=== PATIENT | female | born 2000 | race Caucasian/White ===

== ENCOUNTER 2022-07-30 16:03 | Emergency (ER) | payer MEDICAID, SELFPAY ==
[2022-07-30 16:06] VITALS: BP 139/99; PULSE 90; RESP 18; TEMP 37.2; O2SAT 100; BMI 35.7
[2022-07-30 16:28] LABS: MANUAL DIFF FLAG NO
[2022-07-30 16:29] LABS: Basophils Absolute Auto 0.1 X10*3/uL (0.0-0.2); Basophils Percent Auto 0.6 % (0-2); Eosinophils Absolute Auto 0.3 X10*3/uL (0.0-0.4); Hematocrit 41.3 % (37.0-47.0); Hemoglobin 14.1 g/dl (12.0-16.0); Imm Gran Abs Auto 0.03 X10*3/uL (0.00-0.03); Imm Gran Pct Auto 0.3 % (0.0-0.4); Lymphocytes Absolute Auto 2.6 X10*3/uL (1.2-4.9); Lymphocytes Percent Auto 29.5 % (20-40); Mean Corpuscular HGB Conc 34.1 g/dl (31.0-35.0); Mean Corpuscular Hemoglobin 27.4 pg (27.0-33.0); Mean Corpuscular Volume 80.4 fL (80.0-98.0); Mean Platelet Volume 9.1 fL (9.4-12.3); Monocytes Absolute Auto 0.5 X10*3/uL (0.1-1.2); Monocytes Percent Auto 6.1 % (2-11); Neutrophils Absolute Auto 5.3 x10*3/uL (2.0-8.3); Neutrophils Percent Auto 60.5 % (45-73); Platelet Count 411 X10*3/uL (160-400); Red Blood Count 5.14 X10*6/uL (4.20-5.50); Red Cell Distribution Width 11.9 % (11.0-16.0); White Blood Count 8.8 X10*3/uL (4.8-10.8)
[2022-07-30 16:59] LABS: Alanine Aminotransferase 14 U/L (0-31); Albumin Level 4.5 g/dL (3.5-5.0); Alkaline Phosphatase 57 U/L (39-117); Anion Gap 16 (12-20); Aspartate Amino Transferase 17 U/L (5-31); Bilirubin Total 0.2 mg/dL (0.0-1.0); Blood Urea Nitrogen 10 mg/dL (9-16); Calcium 9.6 mg/dL (8.4-10.2); Carbon Dioxide 24 mmol/L (22-29); Chloride 103 mmol/L (96-108); Creatinine Clr Calc Pharmacy 99.1; Estimated Glomerular Filt Rate > 60; Glucose Random 105 mg/dL (60-115); Potassium 4.4 mmol/L (3.3-5.1); Sodium 139 mmol/L (135-145); Total Protein 7.8 g/dL (6.5-8.0)
--- NOTE | 2022-07-30 17:55 | ED.GENADULT ---
HPI - General Adult General Chief complaint: General Medical Stated complaint: swollen neck R side Time Seen by Provider: 07/30/22 17:25 Source: patient Mode of arrival: ambulatory Limitations: no limitations History of Present Illness HPI narrative: 21-year-old female presents to the ER for evaluation of a right-sided swollen lymph node on the side of her neck for the last 4 months. She reports she has 1 area on the back of her neck, near her hairline that there is a enlarged, tender lymph node. She reports she also has had a swollen tonsil on the right side and pain with swallowing for the last few months on and off. Patient reports she was seen by her PCP about this, she had an ultrasound performed in May, told was a normal lymph node and to present for re-evaluation in 4-8 weeks if symptoms persisted. Patient reports she has generalized pain in her neck and right side of her body. She does not have any other swollen lymph nodes and has been monitoring for this. She has not had any fevers, night sweats or weight loss. MD complaint: Swollen lymph node Onset (ago): month(s) (4) Location: neck Radiation: extremity Severity: moderate Severity scale (1-10): 5 Quality: aching Pain Consistency: constant Relieving factors: none Exacerbating factors: none Associated symptoms: denies other symptoms Treatments prior to arrival: none Related Data Previous Rx's Medication Instructions Recorded amoxicillin 875 mg-potassium 1 tab PO BID #14 tabs 07/30/22 clavulanate 125 mg tablet Allergies Allergy/AdvReac Type Severity Reaction Status Date / Time No Known Allergies Allergy Verified 07/30/22 16:06 Review of Systems Review of Systems: Constitutional: No Fever, No Chills, No weight loss ENT/Mouth: + sore throat, No Rhinorrhea, No Swallowing Difficulty Cardiovascular: No Chest Pain, No SOB, No Orthopnea, No Edema Respiratory: No Cough, No Sputum, No Wheezing, No dyspnea Gastrointestinal: No Nausea, No Vomiting, No Diarrhea, No abdominal Pain, No Hematochezia, No Melena, +Constipation Musculoskeletal: No joint pain, No Myalgias Skin: No Skin Lesions, No rash Neuro: No Weakness, No Numbness, No Dizziness, + Headache Heme/Lymph: No Bruising, +Lymphadenopathy PMFSH Social History Social History Advance Directives: No Advance Directives Information Provided: No Physical Exam ED Vital Signs: Vital Signs - 24 hr 07/30/22 16:06 Temperature 98.9 F Pulse Rate 90 Respiratory Rate 18 Blood Pressure 139/99 H Pulse Oximetry 100 Oxygen Delivery Method Room Air BMI result Body Mass Index 35.7 Appearance: Alert. Oriented X3. No acute distress. Eyes: Pupils equal, round and reactive to light. ENT: Pharynx normal. Normal tympanic membranes bilaterally. Normal inspection of the tonsils. Uvula midline. Normal voice. Neck: Normal inspection. Neck supple. Poserior occipital area on the right side with a single approximately 1cm enlarged and tender lesion, mobile, consistent with lymph node. No other palpable lymphadenopathy throughout the cervical chains. No supraclavicular lymphadenopathy. CVS: Normal heart rate and rhythm. Pulses normal. Respiratory: No respiratory distress. Breath sounds normal. Abdomen: Soft and nontender. +BS x4 Skin: Skin warm and dry. Normal skin color. Normal skin turgor. No rashes. Extremities: No lower extremity edema. No inguinal lymphadenopathy. Neuro: Oriented X 3. No motor deficit. No sensory deficit. Course Course Course Narrative: 21-year-old female presents to the ER for evaluation of an isolated inflamed, tender lymph node in her posterior occipital chain. She reports pain in the right tonsil in pain with swallowing as well. She has no other URI symptoms. No fevers. No history of lymph home a in the family. She has an outpatient ultrasound who recommended a repeat 1 be done if she had ongoing swelling in 4-8 weeks. She states her primary care doctor left the practice and is in the process of getting a new primary care doctor. On exam today she only has 1 palpable lymph node in the posterior chain. It is mobile and tender, no overlying erythema. No other lymphadenopathy on examination. Otherwise her physical exam is benign. Her lab work is unremarkable. Patient has not been treated with a course of antibiotics for possible bacterial etiology. Will give her a course of Augmentin and have her follow-up with a new PCP or General surgery for evaluation of possible biopsy. No urgent need to arrange this today. She will make phone calls to arrange this as an outpatient. She is stable for discharge home. Patient agrees with plan. Medical Decision Making Lab Data Result diagrams: 07/30/22 16:19 07/30/22 16:19 Labs: Lab Results 07/30/22 07/30/22 Range/Units 16:19 16:19 WBC 8.8 (4.8-10.8) X10*3/uL RBC 5.14 (4.20-5.50) X10*6/uL Hgb 14.1 (12.0-16.0) g/dl Hct 41.3 (37.0-47.0) % MCV 80.4 (80.0-98.0) fL MCH 27.4 (27.0-33.0) pg MCHC 34.1 (31.0-35.0) g/dl RDW 11.9 (11.0-16.0) % Plt Count 411 H (160-400) X10*3/uL MPV 9.1 L (9.4-12.3) fL Immature Gran % (Auto) 0.3 (0.0-0.4) % Neut % (Auto) 60.5 (45-73) % Lymph % (Auto) 29.5 (20-40) % [place] % (Auto) 6.1 (2-11) % Eos % (Auto) 3.0 (0-4) % Baso % (Auto) 0.6 (0-2) % Lymph # (Auto) 2.6 (1.2-4.9) X10*3/uL [place] # (Auto) 0.5 (0.1-1.2) X10*3/uL Eos # (Auto) 0.3 (0.0-0.4) X10*3/uL Baso # (Auto) 0.1 (0.0-0.2) X10*3/uL Abs Immat Gran (auto) 0.03 (0.00-0.03) X10*3/uL Absolute Neuts (auto) 5.3 (2.0-8.3) x10*3/uL Absolute Nucleated RBC 0.000 (0.0-0.012) X10*3/uL Nucleated RBC % (auto) 0.0 (0.0-0.2) /100WBC Sodium 139 (135-145) mmol/L Potassium 4.4 (3.3-5.1) mmol/L Chloride 103 (96-108) mmol/L Carbon Dioxide 24 (22-29) mmol/L Anion Gap 16 (12-20) BUN 10 (9-16) mg/dL Creatinine 0.85 (0.5-1.4) mg/dL Estim Creat Clear Calc 99.1 Estimated GFR > 60 Random Glucose 105 (60-115) mg/dL Calcium 9.6 (8.4-10.2) mg/dL Total Bilirubin 0.2 (0.0-1.0) mg/dL AST 17 (5-31) U/L ALT 14 (0-31) U/L Alkaline Phosphatase 57 (39-117) U/L Total Protein 7.8 (6.5-8.0) g/dL Albumin 4.5 (3.5-5.0) g/dL Discharge Plan Discharge Clinical Impression: Lymphadenopathy of head and neck Patient Disposition: Home, Self-Care Instructions: Lymphadenopathy (ED) Additional Instructions: Take the prescribed antibiotic as directed. Complete the entire course. Use warm compresses to the area several times per day. Take anti-inflammatory medications as Motrin, Aleve, Advil for pain. Recommend following up with the primary care doctor to arrange for a repeat ultrasound and potential biopsy of the inflamed lymph node. If he cannot get a hold of your primary care doctor, recommend trying to a follow up with General surgery for evaluation of the same. If you develop new or worsening symptoms call 911 or come back to the ER for further evaluation. Prescriptions: New amoxicillin-pot clavulanate 875-125 mg tablet 1 tab PO BID Qty: 14 0RF [place]: [facility] [place] [facility] [place]] [facility] [Provider Group]
== END 2022-07-30 19:05 | disposition home or self-care (01) ==
PROVIDERS: Emergency Provider Emergency Medicine
DX: R59.1 Generalized enlarged lymph nodes (principal)
CPT/HCPCS: 36415; 80053; 85025; 99281; 99283

== ENCOUNTER 2022-08-04 12:11 | Emergency (ER) | payer MEDICAID, SELFPAY ==
--- NOTE | ~2022-08-04 | CT_ITS ---
EXAMINATION: CT HEAD WITHOUT CONTRAST CLINICAL INFORMATION: Headache COMPARISON: None TECHNIQUE: Imaging was performed from the skull base to vertex without intravenous administration of contrast. This CT examination was performed using dose optimization techniques as appropriate, variously including the following: *Automated exposure control *Adjustment of mA and/or kV according to patient size (this includes techniques or standardized protocols for targeted exams where dose is matched to indication/reason for exam; i.e. extremities or head) *Use of iterative reconstruction technique Total exam dose length product: 818 mGy-cm FINDINGS: No intra or extra-axial fluid collection, hemorrhage, or mass. No ventriculomegaly. No midline shift or herniation. Basal cisterns are patent. Burns-white matter differentiation is maintained. No territorial encephalomalacia. No significant volume loss. There is no abnormal attenuation within the brain parenchyma. No calvarial fracture or soft tissue abnormality. Small amount of mucus or small mucous retention cyst in the posterior right maxillary antrum. Mastoid air cells are normally aerated. CT/CT head/brain wo IV con IMPRESSION: No acute intracranial pathology.
--- NOTE | ~2022-08-04 | CT_ITS ---
EXAMINATION: CT ABDOMEN AND PELVIS WITH CONTRAST CLINICAL INFORMATION: Abdominal pain on palpation COMPARISON: None TECHNIQUE: Multidetector volumetric images were obtained from the superior aspect of the liver through the pubic symphysis following administration 85 mL of Omnipaque 350 intravenous contrast. Sagittal and coronal reformatted images were obtained on the technologist's workstation. Oral contrast: No This CT examination was performed using dose optimization techniques as appropriate, variously including the following: *Automated exposure control *Adjustment of mA and/or kV according to patient size (this includes techniques or standardized protocols for targeted exams where dose is matched to indication/reason for exam; i.e. extremities or head) *Use of iterative reconstruction technique DLP: 1039 mGy-cm FINDINGS: LUNG BASES: The visualized lung bases are unremarkable. LIVER, GALLBLADDER, AND BILIARY TREE: The liver is normal in size, shape, and attenuation. No focal hepatic lesion or biliary ductal dilatation is present. The gallbladder is unremarkable with no evidence of radiopaque gallstones, gallbladder wall thickening, or obvious pericholecystic inflammatory changes. PANCREAS: Unremarkable. SPLEEN: Unremarkable. ADRENAL GLANDS: Unremarkable. KIDNEYS AND URETERS: The kidneys are normal in size, shape, and attenuation. No hydronephrosis, hydroureter, or calculi seen. No perinephric stranding. BLADDER: Unremarkable. GASTROINTESTINAL TRACT: The small and large bowel are unremarkable. The appendix is unremarkable. ABDOMINAL WALL: No significant hernia is appreciated. LYMPH NODES: Normal. VASCULAR: Unremarkable. PELVIC VISCERA: A normal anteverted uterus is present. Bilateral ovarian cysts are seen, with on the left with a slightly thickened wall, perhaps associated with rupture. Small amount of free fluid is present in the cul-de-sac. OSSEOUS STRUCTURES: Unremarkable. CT/CT abdomen pelvis w IV con IMPRESSION: Bilateral ovarian cysts, with on the left, one of which has a slightly thickened wall, perhaps associated with rupture and the small amount of free fluid which is present in the cul-de-sac. Fleischner guidelines were followed.
--- NOTE | ~2022-08-04 | CT_ITS ---
EXAMINATION: CT SOFT TISSUE NECK WITH CONTRAST CLINICAL INFORMATION: Small lymph nodes and positive constitutional symptoms COMPARISON: None TECHNIQUE: Following the intravenous administration of 85 mL of Omnipaque 350 intravenous contrast, helical imaging was performed in the axial plane with generation of coronal and sagittal reformatted images. This CT examination was performed using dose optimization techniques as appropriate, variously including the following: *Automated exposure control *Adjustment of mA and/or kV according to patient size (this includes techniques or standardized protocols for targeted exams where dose is matched to indication/reason for exam; i.e. extremities or head) *Use of iterative reconstruction technique DLP: 673 mGy-cm FINDINGS: There are scattered small subcentimeter short axis dimension cervical lymph nodes bilaterally, morphologically normal in appearance. The largest lymph nodes are noted jugulodigastric chains measuring up to 0.7 cm in short axis. No mucosal space mass. No retropharyngeal edema/fluid collection. Normal appearance of the laryngeal structures. Thyroid gland and major salivary glands are unremarkable. No carotid space mass. Common and internal carotid arteries are patent as are the internal jugular veins. Unremarkable appearance of the court recording monitor space and symmetric normal appearance of the parapharyngeal fat. Globes and retro-orbital structures are intact. Visualized intracranial contents are unremarkable. Visualized portions of the upper lungs are clear. Triangular shaped soft tissue density in the anterior mediastinum consistent with thymic tissue noted. No fracture or suspicious osseous lesion. Visualized paranasal sinuses and mastoid air cells are normally aerated. CT/CT soft tissue neck w IV con IMPRESSION: 1. No pathologically enlarged cervical lymph nodes identified. 2. No mass or fluid collection identified.
[2022-08-04 12:38] VITALS: BP 143/80; PULSE 88; RESP 19; TEMP 36.6; O2SAT 100; BMI 35.2
[2022-08-04 12:57] LABS: MANUAL DIFF FLAG NO
[2022-08-04 12:58] LABS: Basophils Percent Auto 0.6 % (0-2); Eosinophils Absolute Auto 0.3 X10*3/uL (0.0-0.4); Eosinophils Percent Auto 3.6 % (0-4); Hematocrit 40.3 % (37.0-47.0); Hemoglobin 13.5 g/dl (12.0-16.0); Imm Gran Abs Auto 0.02 X10*3/uL (0.00-0.03); Imm Gran Pct Auto 0.3 % (0.0-0.4); Lymphocytes Absolute Auto 2.3 X10*3/uL (1.2-4.9); Lymphocytes Percent Auto 31.7 % (20-40); Mean Corpuscular HGB Conc 33.5 g/dl (31.0-35.0); Mean Corpuscular Hemoglobin 27.1 pg (27.0-33.0); Mean Corpuscular Volume 80.8 fL (80.0-98.0); Monocytes Absolute Auto 0.5 X10*3/uL (0.1-1.2); Monocytes Percent Auto 6.6 % (2-11); Neutrophils Absolute Auto 4.1 x10*3/uL (2.0-8.3); Neutrophils Percent Auto 57.2 % (45-73); Platelet Count 377 X10*3/uL (160-400); Red Blood Count 4.99 X10*6/uL (4.20-5.50); Red Cell Distribution Width 12.1 % (11.0-16.0); White Blood Count 7.2 X10*3/uL (4.8-10.8)
[2022-08-04 12:59] LABS: Appearance Urine Clear; Color Urine Yellow; Glucose Urine UA Negative (Negative); Leukocyte Esterase Urine Negative (Negative); Nitrite Urine Negative (Negative); PH 5.5 (5.0-9.0); Specific Gravity - Urine 1.015 (1.005-1.025); Urine Blood Negative (Negative); Urine Ketones Negative (Negative); Urine Protein Negative (Neg-Trace)
[2022-08-04 13:02] LABS: UPreg QC Valid YES; Urine Pregnancy NEGATIVE (NEGATIVE)
[2022-08-04 13:18] LABS: Anion Gap 15 (12-20); Blood Urea Nitrogen 9 mg/dL (9-16); Calcium 9.4 mg/dL (8.4-10.2); Carbon Dioxide 22 mmol/L (22-29); Chloride 106 mmol/L (96-108); Creatinine Clr Calc Pharmacy 101.8; Estimated Glomerular Filt Rate > 60; Glucose Random 95 mg/dL (60-115); Potassium 4.3 mmol/L (3.3-5.1); Sodium 139 mmol/L (135-145)
--- NOTE | 2022-08-04 17:46 | ED.GENADULT ---
HPI - General Adult General Chief complaint: General Medical Stated complaint: Swollen lymph node/Thyroid issues? Time Seen by Provider: 08/04/22 17:40 Source: patient Mode of arrival: ambulatory Limitations: no limitations History of Present Illness HPI narrative: 21-year-old female presents to the ER for evaluation of a right-sided swollen painful lymph node on the side of her neck for the last 3 months.? Patient reports she was seen by her PCP about this, she had an ultrasound performed in May, told was a normal lymph node and to present for re-evaluation if symptoms persisted.? Patient reports she has generalized pain in her neck.? She does not have any other swollen lymph nodes and has been monitoring for this.? Endorses 12 lb weight loss in two months, diaphoresis, fevers/chills, night sweats. Also reporting headache, tinitus, right sided ear pain and nausea. No history of Hodgkin's or non-Hodgkin's lymphoma the family. Related Data Previous Rx's Medication Instructions Recorded amoxicillin 875 mg-potassium 1 tab PO BID #14 tabs 07/30/22 clavulanate 125 mg tablet prednisone 20 mg tablet 40 mg PO DAILY 5 days #10 tabs 08/04/22 Allergies Allergy/AdvReac Type Severity Reaction Status Date / Time No Known Allergies Allergy Verified 07/30/22 16:06 Review of Systems Review of Systems: Constitutional : + Weight loss, + Fever, + Chills, + Fatigue, + Malaise ENT/Mouth : No sore throat, No Rhinorrhea, + ear pain Eyes: No Eye Pain, No Swelling, No Redness Cardiovascular : No Chest Pain, No SOB, No Dyspnea on Exertion, No Orthopnea, No Edema, No Palpitations Respiratory : No Cough, No Sputum, No Wheezing Gastrointestinal : + Nausea, No Vomiting, No Diarrhea, No Constipation, No abdominal Pain, No Hematochezia, No Melena Genitourinary : No Dysuria, No Urinary Frequency, No Hematuria, Musculoskeletal : + joint pain, No Myalgias, No Joint Swelling Skin : No Skin Lesions, No rash Neuro : No Weakness, No Numbness, No Dizziness, + Headache Psych : No Anxiety/Panic, No Depression All other systems reviewed and are negative Yes all other systems are reviewed and are negative [facility] Past Medical History Attestation statement: The following information was validated with the patient. Source: old records reviewed and nursing notes reviewed Social History Social History Advance Directives: No Advance Directives Information Provided: No Physical Exam ED Vital Signs: Vital Signs - 24 hr 08/04/22 12:38 08/04/22 17:54 Temperature 98 F 98.0 F Pulse Rate 88 80 Respiratory Rate 19 16 Blood Pressure 143/80 H 135/79 Pulse Oximetry 100 99 Oxygen Delivery Method Room Air Room Air BMI result Body Mass Index 35.2 vss Appearance: Alert.? Oriented X3.? No acute distress.? Head: Normocephalic, atraumatic, no step-offs or deformities Eyes: Pupils equal, round and reactive to light.? ENT: Pharynx normal.? Neck: Normal inspection.? Neck supple.? Cervical lymphadenopathy to right side of neck CVS: Normal heart rate and rhythm.? Pulses normal.? Respiratory: No respiratory distress.? Breath sounds normal.? Abdomen: Soft and nontender.? Skin: Skin warm and dry.? Normal skin color.? Normal skin turgor.? Extremities: No lower extremity edema.? No calf ttp. 5/5 strength to bilateral upper and lower extremities Back: No midline tenderness, no C-spine tenderness, full range of motion, no CVA tenderness bilaterally Neuro: Oriented X 3.? No motor deficit.? No sensory deficit. CN 2-12 intact Course Reevaluation(s) Reevaluation #1: Sign out to [facility]. Pending scans and reeval Time: 18:40 Medical Decision Making [facility] Narrative Medical decision making narrative: 1800 21-year-old female presents with complaints of a painful swollen lymph node in her neck times a few months worsening no reporting constitutional symptoms. Review of systems overwhelmingly positive. No significant family or personal history of cancer or Hodgkin's or non-Hodgkin's lymphoma. To note to note, patient was seen here on 07/30/2022 with similar complaints was placed on Augmentin with little to no relief. Physical examination with left upper quadrant pain and right lower quadrant pain to palpation however patient did not express concerns about abdominal pain upon history taking. Also right-sided cervical adenopathy noted Plan at this time is to obtain a CT with contrast of soft tissues neck, head, abdomen and pelvis. Because of constitutional symptoms there is concern for malignancy, suspicion for electrolyte, infection abscesses to be this discomfort Plan at this time is to obtain labs, imaging, Monospot. Medical Records Medical records reviewed: Yes I reviewed the patient's medical records. Lab Data Lab results reviewed: Yes I reviewed the patient's lab results. Result diagrams: 08/04/22 12:51 08/04/22 12:51 Labs: Lab Results 08/04/22 08/04/22 08/04/22 Range/Units 12:51 12:51 12:51 WBC 7.2 (4.8-10.8) X10*3/uL RBC 4.99 (4.20-5.50) X10*6/uL Hgb 13.5 (12.0-16.0) g/dl Hct 40.3 (37.0-47.0) % MCV 80.8 (80.0-98.0) fL MCH 27.1 (27.0-33.0) pg MCHC 33.5 (31.0-35.0) g/dl RDW 12.1 (11.0-16.0) % Plt Count 377 (160-400) X10*3/uL MPV 9.0 L (9.4-12.3) fL Immature Gran % (Auto) 0.3 (0.0-0.4) % Neut % (Auto) 57.2 (45-73) % Lymph % (Auto) 31.7 (20-40) % [place] % (Auto) 6.6 (2-11) % Eos % (Auto) 3.6 (0-4) % Baso % (Auto) 0.6 (0-2) % Lymph # (Auto) 2.3 (1.2-4.9) X10*3/uL [place] # (Auto) 0.5 (0.1-1.2) X10*3/uL Eos # (Auto) 0.3 (0.0-0.4) X10*3/uL Baso # (Auto) 0.0 (0.0-0.2) X10*3/uL Abs Immat Gran (auto) 0.02 (0.00-0.03) X10*3/uL Absolute Neuts (auto) 4.1 (2.0-8.3) x10*3/uL Absolute Nucleated RBC 0.000 (0.0-0.012) X10*3/uL Nucleated RBC % (auto) 0.0 (0.0-0.2) /100WBC Sodium 139 (135-145) mmol/L Potassium 4.3 (3.3-5.1) mmol/L Chloride 106 (96-108) mmol/L Carbon Dioxide 22 (22-29) mmol/L Anion Gap 15 (12-20) BUN 9 (9-16) mg/dL Creatinine 0.82 (0.5-1.4) mg/dL Estim Creat Clear Calc 101.8 Estimated GFR > 60 Random Glucose 95 (60-115) mg/dL Calcium 9.4 (8.4-10.2) mg/dL Urine Color Yellow Urine Appearance Clear Urine pH 5.5 (5.0-9.0) Ur Specific [place] 1.015 (1.005-1.025) Urine Protein Negative (Neg-Trace) mg/dL Urine Glucose (UA) Negative (Negative) mg/dL Urine Ketones Negative (Negative) mg/dL Urine Blood Negative (Negative) Urine Nitrite Negative (Negative) Ur Leukocyte Esterase Negative (Negative) Urine Test (NEGATIVE) Monoscreen (Negative) 08/04/22 08/04/22 Range/Units 12:51 18:08 WBC (4.8-10.8) X10*3/uL RBC (4.20-5.50) X10*6/uL Hgb (12.0-16.0) g/dl Hct (37.0-47.0) % MCV (80.0-98.0) fL MCH (27.0-33.0) pg MCHC (31.0-35.0) g/dl RDW (11.0-16.0) % Plt Count (160-400) X10*3/uL MPV (9.4-12.3) fL Immature Gran % (Auto) (0.0-0.4) % Neut % (Auto) (45-73) % Lymph % (Auto) (20-40) % [place] % (Auto) (2-11) % Eos % (Auto) (0-4) % Baso % (Auto) (0-2) % Lymph # (Auto) (1.2-4.9) X10*3/uL [place] # (Auto) (0.1-1.2) X10*3/uL Eos # (Auto) (0.0-0.4) X10*3/uL Baso # (Auto) (0.0-0.2) X10*3/uL Abs Immat Gran (auto) (0.00-0.03) X10*3/uL Absolute Neuts (auto) (2.0-8.3) x10*3/uL Absolute Nucleated RBC (0.0-0.012) X10*3/uL Nucleated RBC % (auto) (0.0-0.2) /100WBC Sodium (135-145) mmol/L Potassium (3.3-5.1) mmol/L Chloride (96-108) mmol/L Carbon Dioxide (22-29) mmol/L Anion Gap (12-20) BUN (9-16) mg/dL Creatinine (0.5-1.4) mg/dL Estim Creat Clear Calc Estimated GFR Random Glucose (60-115) mg/dL Calcium (8.4-10.2) mg/dL Urine Color Urine Appearance Urine pH (5.0-9.0) Ur Specific [place] (1.005-1.025) Urine Protein (Neg-Trace) mg/dL Urine Glucose (UA) (Negative) mg/dL Urine Ketones (Negative) mg/dL Urine Blood (Negative) Urine Nitrite (Negative) Ur Leukocyte Esterase (Negative) Urine Test NEGATIVE (NEGATIVE) Monoscreen Negative (Negative) Critical Care Time Critical Care Time Critical Care Time: No Discharge Plan Discharge Clinical Impression: Neck pain, Lymphadenopathy Patient Disposition: Still a Patient Additional Instructions: Take your medications as prescribed. If you were prescribed antibiotics today, it is important that you take your medication to their entirety, do not skip any doses, do not finish them early. Follow-up with your primary care provider this week. Return to the emergency department with new or worsening symptoms. Such as fevers, chills, chest pain, shortness of breath, nausea, vomiting, dizziness, headache, vision changes, lethargy In case of emergency call 911 Prescriptions: New prednisone 20 mg tablet 40 mg PO DAILY 5 Days Qty: 10 0RF No Action amoxicillin-pot clavulanate 875-125 mg tablet 1 tab PO BID Qty: 14 0RF Referrals: [facility] [place] On[facility]/Hematology [Provider Group] - 1 week
[2022-08-04 17:54] VITALS: BP 135/79; PULSE 80; RESP 16; TEMP 36.7; O2SAT 99
[2022-08-04 18:28] LABS: Monotest Negative (Negative)
[2022-08-04 19:12] LABS: TSH reflex Free T4 2.05 uIU/mL (0.32-4.0)
[2022-08-04] MEDS: iohexoL 350 MG/ML 100 ML INFUS..BTL IV (22:10)
[2022-08-04] MEDS: Acetaminophen 325 MG TABLET 650 MG PO (22:22)
== END 2022-08-04 23:32 | disposition home or self-care (01) ==
PROVIDERS: Physician Assistant; Emergency Provider Emergency Medicine
DX: M54.2 Cervicalgia (principal); R51.9 Headache, unspecified; R10.9 Unspecified abdominal pain; Z79.899 Other long term (current) drug therapy
CPT/HCPCS: 36415; 70450; 70491; 74177; 80048; 81003; 81025; 84443; 85025; 86308; 99284; Q9967

== ENCOUNTER 2025-08-22 18:38 | Emergency (ER) | payer OTHER, SELFPAY ==
--- OUTSIDE RECORDS SUMMARY | 2025-08-16 22:59 | XMS_ITS | Continuity of Care Document ---
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 Role Phone Arina SHABAZZ, Kristy Walker Primary Care Physician Encounter [facility] Date(s): 07/17/25 - 08/16/25 [facility] [address] [place] [address]- Encounter Type: Triage Allergies, Adverse Reactions, Alerts No Known Allergies Immunizations Given and Recorded Vaccine Date Status Refusal Reason Human Papillomavirus Vaccine 12/24/16 Recorded Human Papillomavirus Vaccine 05/26/16 Recorded Human Papillomavirus Vaccine 12/24/15 Recorded Human Papillomavirus Vaccine 09/07/14 Recorded Measles/Mumps/Rubella Virus Vaccine 05/26/16 Recor ded Measles/Mumps/Rubella Virus Vaccine 04/18/04 Recor ded Measles/Mumps/Rubella Virus Vaccine 12/28/00 Recor ded Measles/Mumps/Rubella Virus Vaccine 99 Recor ded Meningococcal Conjugate Vaccine 12/24/15 Recorded Meningococcal Conjugate Vaccine 09/07/14 Recorded tetanus/diphtheria/pertussis, acel(Tdap) 10/14/11 Recorded Varicella Virus Vaccine 12/12/09 Recorded Varicella Virus Vaccine 12/28/00 Recorded Poliovirus Vaccine, Inactivated 04/18/04 Recorded Poliovirus Vaccine, Inactivated 03/05/00 Recorded Poliovirus Vaccine, Inactivated 99 Recorded Poliovirus Vaccine, Inactivated 99 Recorded diphtheria/tetanus/pertussis, acel(DTaP) 04/18/04 Recorded diphtheria/tetanus/pertussis, acel(DTaP) 12/28/00 Recorded diphtheria/tetanus/pertussis, acel(DTaP) 03/05/00 Recorded diphtheria/tetanus/pertussis, acel(DTaP) 99 Recorded diphtheria/tetanus/pertussis, acel(DTaP) 99 Recorded hepatitis B pediatric vaccine 12/28/00 Recorded hepatitis B pediatric vaccine 99 Recorded hepatitis B pediatric vaccine 99 Recorded Medications escitalopram 10 mg oral tablet 1.5 tablet = 15 mg, By Mouth, Daily, # 45 tablet, 5 Refills, Maintenance, 07/02/25 2:20:00 PM EDT, [facility]/pharmacy #[id number], 153, cm, 07/02/25 14:10:00 EDT, Height Start Date: 07/02/25 Status: Ordered Medication Dispense Status: Completed Quantity: 45.0 Unit: tablet Total Allowed Fills: 6 Fills Dispensed: 0 gabapentin 300 mg oral capsule 1, capsule, By Mouth, 2 times a day, # 60 capsule, Refills 1, Maintenance, 08/06/25 4:17:00 PM EDT,Route to Pharmacy Electronically, [id number], 153, cm, 07/02/25 14:10:00 EDT, Height Start Date: 08/06/25 Status: Ordered Medication Dispense Status: Completed Quantity: 60.0 Unit: capsule Total Allowed Fills: 1 Fills Dispensed: 0 ibuprofen 600 mg oral tablet 600 mg, 1, tablet, By Mouth, 4 times a day, PRN, # 12 tablet, Refills 0, Tot. Refills 0, Maintenance, as needed for pain, 11/13/18 1:47:06 AM EST, Print Requisition Start Date: 11/13/18 Status: Ordered Medication Dispense Status: Completed Quantity: 12.0 Unit: tablet Total Allowed Fills: 1 Fills Dispensed: 0 LORazepam 1 mg oral tablet 1 tablet, By Mouth, 2 times a day, PRN NEEDED FOR ANXIETY, # 24 tablet, 0 Refills, Maintenance, 08/06/25 4:18:00 PM EDT, [facility]/pharmacy #[id number], 153, cm, 07/02/25 14:10:00 EDT, Height Start Date: 08/06/25 Status: Ordered Medication Dispense Status: Completed Quantity: 24.0 Unit: tablet Total Allowed Fills: 1 Fills Dispensed: 0 Wellbutrin XL 300 mg/24 hours oral tablet, extended release 1 tablet = 300 mg, By Mouth, Daily, # 30 tablet, 3 Refills, Maintenance, 11/18/21 9:09:00 AM EST, ER Tablet, [facility][id number], Partial fill upon patient request if the prescription is for a schedule II opioid drug., 153, cm, 11/18/21 8:45:00 EST, Height, 85, kg, 11/08/20 16:00:00 EST, Dry Weight Start Date: 11/18/21 Status: Ordered Medication Dispense Status: Completed Quantity: 30.0 Unit: tablet Total Allowed Fills: 4 Fills Dispensed: 0 Problem List Condition Confirmation Course Effective Dates Status H ealth Status Informant Generalized anxiety disorder Confirmed Active Lymphadenopathy Confirmed Active Menometrorrhagia Confirmed Active Obese class I Confirmed Active Dyspareunia, female Confirmed Active PTSD (post-traumatic stress disorder) Confirmed Active Major depressive disorder, recurrent, moderate Confirmed Active MDD (major depressive disorder), recurrent episode Confirmed Active Social History Social History Type Response Smoking Status Never smoker; Tobacc o user in household: Yes; Type: Cigarettes entered on: 06/30/17 Sexual Orientation Self described orien tation: ; Straight or heterosexual Sex Sex Representation Female (finding) Patient Care team information Care Team Personnel Name: Kristy Santa MD Position: [facility] Physician - Primary Care Member Role: PCP Address: [address] [place] [address] Telecom: Care Team Related Persons Name: JANE FLORES Name: KRISTY RODRÍGUEZ Name: KRISTY RODRÍGUEZ Insurance Providers Guarantor name: KRISTY RODRÍGUEZ Health Plan Information #: 1 Payer: [employer] Payer Identifier: XENIA Member Number: [id number] Group Number: [id number] Subscriber Identifier: XENIA Relationship to Subscriber: self Coverage Type: Medicaid (Managed Care) Coverage Verification Date: NA Telecom: NA Address: NA
--- NOTE | ~2025-08-22 | XR_ITS ---
CLINICAL HISTORY: chest pain 2 view chest x-ray. Comparison: None provided Findings: Heart size is normal. No consolidation or effusion. No acute fracture. The visualized upper abdomen is unremarkable. Impression: No acute cardiopulmonary process. This document has been electronically signed by: Precious Babcock MD on 08/22/2025 19:42:31
--- NOTE | ~2025-08-22 | CT_ITS ---
CLINICAL HISTORY: headache CT Head without contrast Comparison: None provided Findings: No large vessel territory infarct. No acute intracranial hemorrhage. No mass effect, midline shift, or herniation. The pituitary gland and sella are unremarkable. The cerebellar tonsils are appropriately positioned. Orbits: Unremarkable. Paranasal sinuses: Well aerated. The mastoid air cells are well aerated. 4 mm soft tissue nodule of the superior scalp. No acute displaced calvarial fracture. Impression: No acute intracranial abnormality. 4 mm soft tissue nodule of the left superior scalp. Correlate with physical exam. This document has been electronically signed by: Precious Babcock MD on 08/22/2025 20:40:20
--- NOTE | ~2025-08-22 | CT_ITS ---
CLINICAL HISTORY: neck pin CT cervical spine without contrast Comparison: None provided Findings: Vertebral alignment is within normal limits. No significant degenerative change. No acute fractures or dislocations. No acute findings on limited view of the intracranial contents. No cervical fluid collections or masses. Lung apices are clear. IMPRESSION: No acute findings. This document has been electronically signed by: Precious Babcock MD on 08/22/2025 20:40:42
[2025-08-22 18:47] VITALS: BP 131/81; PULSE 85; RESP 18; TEMP 36.6; O2SAT 98; BMI 32.2
--- NOTE | 2025-08-22 18:51 | ECG_ITS ---
Test Reason : chest pain Blood Pressure : */* mmHG Vent. Rate : 84 BPM Atrial Rate : 84 BPM P-R Int : 118 ms QRS Dur : 82 ms QT Int : 358 ms P-R-T Axes : 73 82 65 degrees QTcB Int : 423 ms Normal sinus rhythm Normal ECG No previous ECGs available Referred By: Jacky Cooper Electronically Signed By: Pablo Temple
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
[2025-08-22 20:44] LABS: MANUAL DIFF FLAG NO
[2025-08-22 20:46] LABS: Hematocrit 40.7 % (37.0-47.0); Hemoglobin 13.6 g/dl (12.0-16.0); Imm Gran Abs Auto 0.01 X10*3/uL (0.00-0.03); Imm Gran Pct Auto 0.1 % (0.0-0.4); Lymphocytes Absolute Auto 2.5 X10*3/uL (1.2-4.9); Mean Corpuscular HGB Conc 33.4 g/dl (31.0-35.0); Mean Corpuscular Hemoglobin 27.8 pg (27.0-33.0); Mean Corpuscular Volume 83.2 fL (80.0-98.0); NRBC Abs Auto 0.000 X10*3/uL (0.0-0.012); NRBC Pct Auto 0.0 /100WBC (0.0-0.2); Platelet Count 409 X10*3/uL (160-400); Red Blood Count 4.89 X10*6/uL (4.20-5.50); White Blood Count 6.7 X10*3/uL (4.8-10.8)
[2025-08-22 21:05] LABS: Alanine Aminotransferase 18 U/L (0-31); Albumin Level 4.5 g/dL (3.5-5.0); Alkaline Phosphatase 59 U/L (39-117); Anion Gap 13 (12-20); Aspartate Amino Transferase 21 U/L (5-31); Blood Urea Nitrogen 12 mg/dL (9-16); Calcium 9.4 mg/dL (8.4-10.2); Carbon Dioxide 24 mmol/L (22-29); Chloride 109 mmol/L (96-108); Creatinine Clr Calc Pharmacy 77.0; Estimated Glomerular Filt Rate > 60; Potassium 4.0 mmol/L (3.3-5.1); Sodium 142 mmol/L (135-145); Total Protein 7.6 g/dL (6.5-8.0)
[2025-08-22 21:07] LABS: Troponin-I High Sensitivity < 2.7 ng/L (<3.5-17.0)
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
--- OUTSIDE RECORDS SUMMARY | 2025-08-22 21:43 | XMS_ITS | Clinical Summary ---
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 ER for no stools in 3 weeks, Miralax cleanout 08/03: seen by adult GI, plan for colonoscopy 08/18/17: colonoscopy grossly normal, small external hemorrhoids 09/17/17: seen by adult GI, trial of lactulose and high fiber diet. F/u with Dr. Barros 11/04 Irritable bowel syndrome wit h constipation 11/11/2017 DX:Irritable bowel syndrome with constipation; COMMENT: 11/04: started on Linaclotide [address] Barros Dermoid cyst of scalp 12/24/2015 DX:Dermoid cyst of scalp Anxiety 12/24/2015 DX:Anxiety Major depressive disorder wi th single episode, in partial remission (CMS/HCC V24) 01/05/2017 DX:Major depressive disorder with single episode, in partial remission (HCC) Traumatic rupture of left ul luis collateral ligament 10/05/2017 DX:Traumatic rupture of left ulnar collateral ligament; COMMENT: 10/03: xray showed effusion. MRI showed complete tear. REferred to orthopedics Family History Medical History Relation Name Comments No Known Problems Brother No Known Problems Father Hypertension Maternal Grandfather renal f ailure Breast cancer Maternal Grandmother Hyperthyroidism Mother on synthyroi d Other: migraine Mother SLE Relation Name Status Comments Brother Alive Father Alive Maternal Grandfather Maternal Grandmother Mother Alive Social History Tobacco Use Types Packs/Day Years Used Date Smoking Tobacco: Never Smokeless Tobacco: Never Alcohol Use Standard Drinks/Week Comments No 0 (1 standard drink = 0.6 oz pur e alcohol) Comments Unknown Sex and Gender Information Value Date Recorded Sex Assigned at Not on file Legal Sex Female 10:52 AM EST Gender Identity Not on file Sexual Orientation Not on file Obstetrics History Plan of Treatment Health Maintenance Due Date Last Done Comments Cervical Cancer Screening: Pap Smear 2020 DTaP,Tdap,and Td Vaccines (7 - Td or Tdap) 10/14/2021 10/14/2011, 04/18/2004, 12/28/2000, Additional history exists Cholesterol Screening (Lipid Panel) 11/16/2023 HIV Screening 11/16/2023 Hepatitis C Screening 11/16/2023 Social Influencers of Health Screening 11/16/2023 Depression Screening 10/18/2024 COVID-19 Vaccine ( season) 2025 Influenza Vaccine (#1) 2025 9, 08/20/2016, 07/17/2014, Additional history exists RSV Immunization Adult Patients (1 - 1-dose 75+ series) 2074 HIB Vaccines Aged Out 03/05/2000, 12/16, 1999 No longer eligible based on patient's age to complete this topic Hepatitis B Vaccines Completed 12/28/2000, 1999, 1999 IPV Vaccines Completed 04/18/2004, 02/15, 03/05/2000, Additional history exists MMR Vaccines Completed 04/18/2004, 12/28/2000 Varicella Vaccines Completed 12/12/2009, 12/28/2000 Meningococcal ACWY Vaccine Completed 12/24/2015, HPV Vaccines Completed 12/24/2016, 05/2016, 09/07/2014 Hepatitis A Vaccines Aged Out No long er eligible based on patient's age to complete this topic Meningococcal B Vaccine Aged Out No l onger eligible based on patient's age to complete this topic Pneumococcal Vaccine: Pediatrics (0 to 5 Years) and At-Risk Patients (6 to 49 Years) Aged Out No longer eligible based on patient's age to complete this topic RSV Immunization Patients Under 20 months Aged Out No longer eligible based on patient's age to complete this topic Care Teams Review Appraiser Relationship Specialty Start Date End Date Wilda Chen MD PCP - General Internal Medicine 05/11/19
[2025-08-22 22:13] VITALS: BP 116/85; PULSE 84; RESP 16; TEMP 36.8; O2SAT 98
--- NOTE | 2025-08-22 23:24 | PC.NURSE ---
pt is no longer in RP, provider aware.
== END 2025-08-22 23:39 | disposition left against medical advice (07) ==
PROVIDERS: Physician Assistant; Emergency Provider Emergency Medicine; PCP Pediatrics
DX: M54.50 Low back pain, unspecified (principal); G89.29 Other chronic pain; R07.9 Chest pain, unspecified; M54.2 Cervicalgia; R51.9 Headache, unspecified; Z53.29 Procedure and treatment not carried out because of patient's decision for other reasons
CPT/HCPCS: 36415; 70450; 71046; 72125; 80053; 84484; 84702; 85025; 93005; 99284

== ENCOUNTER → 2025-08-22 18:51 | Outpatient (BNV) | payer OTHER, SELFPAY | PROVIDERS: Emergency Provider Emergency Medicine; PCP Pediatrics; Visit Provider Internal Medicine Cardiovascular Disease | DX: R07.9 Chest pain, unspecified (principal) | CPT/HCPCS: 93010 ==

== ENCOUNTER → 2025-08-22 18:51 | Outpatient (BNV) | payer MEDICAID, SELFPAY | PROVIDERS: PCP Pediatrics; Visit Provider Student in an Organized Health Care Education/Training Program | DX: M54.2 Cervicalgia (principal); R22.0 Localized swelling, mass and lump, head; R07.9 Chest pain, unspecified | CPT/HCPCS: 70450; 71046; 72125 ==